=== PATIENT | male | born 1935 | race Caucasian/White ===

== ENCOUNTER → 2016-09-11 | Outpatient (CLI) | payer MEDICARE, BC ==
[~2016-09-11] MED LIST: ALLO300T PO; ASPI81TA2 PO; CARV3.12 PO; LISI20TA PO; PANT40TA3 PO; PIOG1TAB15 PO; SIMV20TA PO; TAMS0.4C97 PO
--- NOTE | 2016-09-11 16:23 | RAD ---
Lumbar spine, 3 views, 09/11/2016: History: Back pain There is a mild vertebral compression deformity at L2. In retrospect this was present on an old CT study from 04/10/2017. The other lumbar vertebral heights are well-maintained. There are mild scattered marginal spurs. There are mild degenerative changes involving the facet joints in the lower lumbar spine. Aortoiliac calcific plaquing is present. IMPRESSION: 1. Old L2 vertebral compression fracture. 2. Mild scattered degenerative changes. 3. No acute abnormality is detected.
== END | disposition home or self-care (01) ==
LOC: DXRADRC 10:06
PROVIDERS: ATTEND Family Medicine
DX: M54.89 Other dorsalgia (principal)
CPT/HCPCS: 72100

== ENCOUNTER 2020-11-13 04:20 | Emergency (ER) | payer MEDICARE, BC ==
[~2020-11-13] VITALS: Ht 180.3 cm; Wt 83.4 kg
[~2020-11-13 04:20] MED LIST changes: +ASPI-630 PO; -ASPI81TA2 PO; -PIOG1TAB15 PO; +PIOG1TAB24 PO
--- NOTE | 2020-11-13 04:25 | PHYS DOC ---
Adult General HPI HPI Patient is an 85-year-old male with an unknown past medical history who presents via EMS after a fall. EMS got a call to come to her home where the patient had fell. Per at home, they went to bed between 9 PM and 10 PM and he was at his baseline. told EMS that around 3 AM she heard a loud noise, woke up and he had fell onto the ground. Per and EMS he was confused and seemed to have trouble breathing. EMS stated that on arrival he had oxygen saturations in the 60s and was placed on nasal cannula. States that it was not until he put a nonrebreather on that he got oxygen saturations up in the 90s. On arrival to the emergency department patient is more awake and alert per EMS with a blood sugar of 160. Patient however awake, is not speaking but is moving all extremities. (GRECIA DOZIER MD) Review of Systems Review of Systems Review of systems otherwise unremarkable except noted in HPI (GRECIA DOZIER MD) Allergies Allergies Allergies Coded Allergies Type Severity Reaction Last Updated Verified Penicillins Allergy Unknown 12/26/14 Yes (GRECIA DOZIER MD) Physical Exam Physical Exam Constitutional: Well developed, well nourished, patient awake but not speaking HENT: Has an abrasion on left parietal scalp with some erythema, bilateral external ears normal, no hemotympanums, oropharynx moist, no oral exudates, nose normal. [] Eyes: 2 mm bilaterally and reactive pupils, conjunctiva normal, no discharge. [] Neck: Normal range of motion, no tenderness, supple, no stridor. [] Cardiovascular:Heart rate regular rhythm, no murmur [] Lungs & Thorax: Decreased breath sounds bilaterally with no obvious wheezing or rhonchi Abdomen: Bowel sounds normal, soft, no tenderness, no masses, no pulsatile masses. [] Skin: Warm, dry, no erythema, no rash. [] Back: No step-offs, bruising or deformities noted Extremities: No tenderness, no cyanosis, no clubbing, ROM intact, no edema. [] Neurologic: GCS of 12 (E4, V3, M5). Patient looking around in all directions, will occasionally respond to comments and obey commands such as stick out your tongue but other appears to be staring off. Does appear to have sensation in all limbs on pinch. Appears to have motor function in all limbs. (GRECIA DOZIER MD) EKG EKG [] (GRECIA DOZIER MD) Radiology/Procedures Radiology/Procedures [] (GRECIA DOZIER MD) Impressions: INDICATION: Reason: AMS, OMNI 350, 75ml / Spl. Instructions: / History: COMPARISON: CT head from earlier same day. TECHNIQUE: Axial CT images obtained through the head and neck arterial vasculature with intravenous contrast. 3D images were processed per protocol. Estimates of carotid stenosis based on criteria that correlates with NASCET. One or more of the following individualized dose reduction techniques were utilized for this examination: 1. Automated exposure control; 2. Adjustment of the mA and/or kV according to patient size; 3. Use of iterative reconstruction technique. FINDINGS: Cystic changes at the lung apices. There is also some groundglass opacities at the lung apices. Neck Angio: Multifocal plaque is seen throughout the vasculature. There is some tortuosity at the origin of the left vertebral artery with a suspected focus of soft plaque within the region. The left vertebral artery is patent. Plaque is seen within the right vertebral artery which is patent with some tapering in size distally. Calcific atherosclerosis of the right internal carotid artery. This includes at the carotid bulb. Right common carotid artery is patent. Left common carotid artery is patent with some soft plaque seen within as well as some scattered hard plaque. Plaque at the carotid bulb. There is a region of stenosis at the left internal carotid artery proximally likely within the 50-70 percent range. Calcific atherosclerosis of the bilateral carotid siphon. Plaque at the bilateral external carotid arteries which are patent proximally. Brain Angio: Proximal anterior cerebral arteries are patent. Proximal posterior cerebral arteries are patent. Proximal middle cerebral arteries are patent. Basilar artery is patent. The junction of the distal aspect of the right middle cerebral artery and right internal carotid artery. Mild focal aneurysmal outpouching from the inferior aspect of the vessel measuring approximately 2 mm. 2 mm aneurysmal outpouching off of the inferior aspect of the left distal internal carotid artery near MCA junction Other Findings: Degenerative changes of the spine with multilevel central canal and neural foraminal stenosis. There are some prominent lymph nodes in partially visualized superior mediastinum. Scattered regions of low density throughout the white matter. Patchy osseous demineralization with scattered lucent lesions within osseous structures. Opacification of right mastoid air cells. IMPRESSION: * Vertebral, internal and common carotid arteries are patent within the neck. * Proximal middle, anterior and posterior cerebral arteries are patent. If there is high concern for stroke MRI could better assess for a more peripheral region of ischemia that would not be well seen on CT. 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 * Multifocal plaque throughout the vascular system. * Prominent lymph nodes in partially visualized superior mediastinum. * Opacification of mastoid air cells which could be from congestion or mastoiditis. * Patchy osseous demineralization throughout the osseous structures. Could be related to osteoporosis but a marrow infiltrative process cannot be excluded on this exam. * Fibrotic and emphysematous changes at lung apices. Report called to the emergency department at 6:00 AM. FOR INTERNAL CODING PURPOSES RESULT CODE: (C) Electronically signed by: Sally Jiang MD (11/13/2020 6:05 AM) [id number] DICTATED AND SIGNED BY: SALLY JIANG MD DATE: 11/13/20534 CC: GRECIA DOZIER MD; PCP,NO ~MTH0 0 (ANUPAMA CUNHA DO) Heart Score C/O Chest Pain: N/A Risk Factors: Risk Factors: DM, Current or recent (<one month) smoker, HTN, HLP, family history of CAD, obesity. Risk Scores: Risk Factors: DM, Current or recent (<one month) smoker, HTN, HLP, family history of CAD, obesity. (GRECIA DOZIER MD) Course & Med Decision Making Course & Med Decision Making Patient is an 85-year-old male with an unknown past medical history who presents to the emergency department with apparent altered mental status and GCS of 12. According to EMS he had oxygen saturations in the 60s upon arrival to their house which came up to the 90s with a nonrebreather. Blood glucose of 160. [] (GRECIA DOZIER MD) Course & Med Decision Making The patient's CTA is negative for proximal occlusion. There are couple of small aneurysms. See official read for more details. The patient's x-ray certainly suggestive of bilateral pneumonia or edema. His BNP is negative so pneumonia seems more likely. The patient has been treated with Levaquin. His NIH score has improved significantly as his only real symptom is mild slurred speech. He does not have his glasses so he missed some words reading. I spoke with the transfer center and Dr. Eduardo has accepted the patient for transfer. He will go by ambulance. (ANUPAMA CUNHA DO) Dragon Disclaimer Dragon Disclaimer This electronic medical record was generated, in whole or in part, using a voice recognition dictation system. (GRECIA DOZIER MD) Departure Departure: Impression: Primary Impression: Bilateral pneumonia Additional Impression: TIA (transient ischemic attack) Disposition: HOME / SELF CARE / HOMELESS Condition: GUARDED Problem Qualifiers GRECIA DOZIER MD November 13, 2020 04:24 ANUPAMA CUNHA DO November 13, 2020 06:36
[2020-11-13] MEDS ORDERED: IOHEXOL 350 MG/ML 100 ML VIAL. IV ONE (04:45)
--- NOTE | 2020-11-13 04:47 | RAD ---
INDICATION: Reason: SOB / Spl. Instructions: / History: COMPARISON: February 2013 FINDINGS: Single view of chest obtained. Cardiomediastinal silhouette prominent in size. Mild interstitial opacities at the bilateral lungs. IMPRESSION: * Mild interstitial and groundglass opacities bilaterally which could be from mild edema or bilatera l infiltrate. * Enlarged cardiomediastinal silhouette. Electronically signed by: Quinn Thomas MD (11/13/2020 4:45 AM) [id number]
--- NOTE | 2020-11-13 04:56 | RAD ---
INDICATION: Reason: AMS / Spl. Instructions: / History: COMPARISON: November 2014. TECHNIQUE: Axial CT images obtained through the head without intravenous contrast. One or more of the following individualized dose reduction techniques were utilized for this examinat ion: 1. Automated exposure control; 2. Adjustment of the mA and/or kV according to patient size; 3 . Use of iterative reconstruction technique. FINDINGS: No intracranial hemorrhage. No midline shift. Basal cisterns patents. Ventricles and sulci are globally prominent. No acute osseous abnormality. Opacification and sclerosis through right mastoid air cells. Osseous demineralization. Scattered foci of low attenuation within the white matter. Calcific atherosclerosis. IMPRESSION: 1. No acute intracranial hemorrhage. 2. Scattered regions of low attenuation within the white matter. Non-specific in nature but frequen tly secondary to small vessel ischemic disease. If there is concern for acute causes clinically MRI c an better assess acuity 3. Prominence of ventricles and sulci which is frequently secondary to age related volume loss. Electronically signed by: Quinn Thomas MD (11/13/2020 4:54 AM) [id number]
[2020-11-13] MEDS ORDERED: CONTRAST GIVEN. MC PRN (05:00)
[2020-11-13 05:05] LABS: BASO % 0 % (0-3); EOS # 0.1 x10^3/uL (0.0-0.7); EOS % 1 % (0-3); HEMATOCRIT 31.6 % (39.0-53.0); LYMPH # 1.7 x10^3/uL (1.0-4.8); LYMPH % 14 % (24-48); MEAN CORPUSCULAR HEMOGLOBIN 27 pg (25-35); MEAN CORPUSCULAR HGB CONC 32 g/dL (31-37); MEAN CORPUSCULAR VOLUME 84 fL (79-100); MONO # 0.6 x10^3/uL (0.0-1.1); MONO % 5 % (0-9); NEUT # 9.3 x10^3uL (1.8-7.7); NEUT % 79 % (31-73); PLATELET COUNT 219 x10^3/uL (140-400); RED BLOOD COUNT 3.75 x10^6/uL (4.30-5.70); RED CELL DISTRIBUTION WIDTH 17.1 % (11.5-14.5); WHITE BLOOD COUNT 11.8 x10^3/uL (4.0-11.0)
[2020-11-13 05:15] LABS: CREATININE 1.6 mg/dL (0.7-1.3); GFR 41.2; POTASSIUM 3.9 mmol/L (3.5-5.1)
[2020-11-13 05:21] LABS: ALBUMIN 3.5 g/dL (3.4-5.0); ALBUMIN/GLOBULIN RATIO 0.9 (1.0-1.7); MAGNESIUM 1.6 mg/dL (1.8-2.4); TOTAL BILIRUBIN 0.6 mg/dL (0.2-1.0); TOTAL PROTEIN 7.6 g/dL (6.4-8.2)
[2020-11-13 06:01] LABS: BILIRUBIN,URINE NEG (NEG); CLARITY,URINE CLEAR; COLOR,URINE YELLOW; GLUCOSE,URINE 100 mg/dL (NEG)
[2020-11-13 06:02] LABS: NITRITE,URINE NEG (NEG); UROBILINOGEN,URINE 0.2 mg/dL (0.2 mg/dL)
[2020-11-13 06:03] LABS: BACTERIA,URINE 0 /HPF (0-FEW); RBC,URINE 0 /HPF (0-2); SQUAMOUS EPITHELIAL CELL,UR FEW /LPF; WBC,URINE 0 /HPF (0-4)
--- NOTE | 2020-11-13 06:08 | RAD ---
INDICATION: Reason: AMS, OMNI 350, 75ml / Spl. Instructions: / History: COMPARISON: CT head from earlier same day. TECHNIQUE: Axial CT images obtained through the head and neck arterial vasculature with intravenous contrast. 3 D images were processed per protocol. Estimates of carotid stenosis based on criteria that correlates with NASCET. One or more of the following individualized dose reduction techniques were utilized for this examinat ion: 1. Automated exposure control; 2. Adjustment of the mA and/or kV according to patient size; 3 . Use of iterative reconstruction technique. FINDINGS: Cystic changes at the lung apices. There is also some groundglass opacities at the lung apices. Neck Angio: Multifocal plaque is seen throughout the vasculature. There is some tortuosity at the origin of the l eft vertebral artery with a suspected focus of soft plaque within the region. The left vertebral alma ry is patent. Plaque is seen within the right vertebral artery which is patent with some tapering in size distally. Calcific atherosclerosis of the right internal carotid artery. This includes at the carotid bulb. Rig ht common carotid artery is patent. Left common carotid artery is patent with some soft plaque seen w ithin as well as some scattered hard plaque. Plaque at the carotid bulb. There is a region of stenosis at the left internal carotid artery proxima lly likely within the 50-70 percent range. Calcific atherosclerosis of the bilateral carotid siphon. Plaque at the bilateral external carotid arteries which are patent proximally. Brain Angio: Proximal anterior cerebral arteries are patent. Proximal posterior cerebral arteries are patent. Proximal middle cerebral arteries are patent. Basilar artery is patent. The junction of the distal aspect of the right middle cerebral artery and right internal carotid alma ry. Mild focal aneurysmal outpouching from the inferior aspect of the vessel measuring approximately 2 mm. 2 mm aneurysmal outpouching off of the inferior aspect of the left distal internal carotid alma ry near MCA junction Other Findings: Degenerative changes of the spine with multilevel central canal and neural foraminal stenosis. There are some prominent lymph nodes in partially visualized superior mediastinum. Scattered regions of low density throughout the white matter. Patchy osseous demineralization with scattered lucent lesions within osseous structures. Opacification of right mastoid air cells. IMPRESSION: * Vertebral, internal and common carotid arteries are patent within the neck. * Proximal middle, anterior and posterior cerebral arteries are patent. If there is high concern fo r stroke MRI could better assess for a more peripheral region of ischemia that would not be well seen on CT. * There is a couple of small aneurysms identified bilaterally near the junction of the internal looney tid artery and middle cerebral artery. * Multifocal plaque throughout the vascular system. * Prominent lymph nodes in partially visualized superior mediastinum. * Opacification of mastoid air cells which could be from congestion or mastoiditis. * Patchy osseous demineralization throughout the osseous structures. Could be related to osteoporosi s but a marrow infiltrative process cannot be excluded on this exam. * Fibrotic and emphysematous changes at lung apices. Report called to the emergency department at 6: 00 AM. FOR INTERNAL CODING PURPOSES RESULT CODE: (C) Electronically signed by: Quinn Thomas MD (11/13/2020 6:05 AM) [id number]
--- NOTE | 2020-11-13 06:27 | EKG ---
[address] [address] Test Date: 2020-11-13 Test Time: 04:41:58 Pat Name: ARIEL SUTTON Department: Room: Gender: M Hide Buyer: BRENDAN : 1935 Requested By: GRECIA DOZIER Order Number: [id number] Reading MD: Measurements Intervals [place] Rate: 78 P: 45 ME: 234 QRS: 29 QRSD: 130 T: 70 QT: 402 QTc: 462 Interpretive Statements SINUS RHYTHM PROLONGED ME INTERVAL NON SPECIFIC INTRAVENTRICULAR BLOCK QRS(T) CONTOUR ABNORMALITY CONSISTENT WITH INFERIOR INFARCT PROBABLY OLD ABNORMAL ECG RI6.02 No previous ECG available for comparison
--- NOTE | 2020-11-13 06:31 | RAD ---
INDICATION: Reason: AMS / Spl. Instructions: / History: . COMPARISON: Chest x-ray from earlier same day and CT abdomen from November 2016 TECHNIQUE: Axial CT images obtained through the chest, abdomen and pelvis without contrast. One or more of the following individualized dose reduction techniques were utilized for this examinat ion: 1. Automated exposure control; 2. Adjustment of the mA and/or kV according to patient size; 3 . Use of iterative reconstruction technique. FINDINGS: Chest: Some limitation secondary to patient motion. Cystic changes within the bilateral lungs as well as suspected fibrotic changes which can be seen wit h chronic lung disease. Moderate in severity. Patchy opacities at lung bases. Severe calcific atherosclerosis including of the coronary arteries. There are enlarged lymph nodes within the mediastinum. For example at the precarinal region on the ri ght measuring 12 mm short axis. Also right peritracheal near the thoracic inlet measuring 12 mm short axis. Abdomen and pelvis: Calcific atherosclerosis with infrarenal abdominal aortic ectasia. Left inguinal hernia containing portion of the colon. Fat-containing right inguinal hernia. No intrahepatic bile duct dilation. Postcholecystectomy changes. No peripancreatic fluid collection. No perisplenic hematoma. Low-density exophytic lesion off of the left kidney which is likely cystic in nature measuring up to 55 mm. On prior measured approximately 35 mm. Lobulated appearance of the kidneys with the renal pare nchyma not well evaluated on noncontrast imaging. Urinary bladder is somewhat distended at time of exam. No left hydronephrosis. Suspected exophytic cystic lesion at the upper pole the right kidney as well as peripelvic cystic les ion again seen. Contour deformity of the lower pole of the right kidney. No right-sided hydronephrosi s. Colonic diverticulosis. Prominence the wall of a small portion of the right side of the colon but thi s is in a region with lack of distention. Could be an area of contraction but not well evaluated. Small fat-containing umbilical hernia. No CT evidence of bowel obstruction. Osseous findings: Degenerative changes the spine with central canal and neural foraminal stenosis. Mild compression fra cture of the superior endplate of L2. Patchy osseous demineralization. Scattered small sclerotic foci in osseous structures. Commonly from bone island. IMPRESSION: * Cystic and suspected fibrotic changes within the lungs which can be seen with chronic lung disease . * Superimposed patchy opacities at lung bases which could be from atelectasis or infiltrate. * Mediastinal lymphadenopathy. Could be reactive in nature but follow-up could be obtained to ensure no increase to exclude neoplastic causes. * Left inguinal hernia containing a portion of the colon without evidence of bowel obstruction. * Increase in size of suspected cystic lesion of the left kidney. The kidneys have a lobulated appea vinita bilaterally with the parenchyma not well evaluated given lack of intravenous contrast. * Mild compression fracture of L2. Similar to prior. * Severe calcific atherosclerosis. * Asymmetric fatty tissue within the left greater than right adnexa with suggestion of a capsule on the left. Could be from causes such as left axillary lipoma measuring greater than 8 cm. Electronically signed by: Quinn Thomas MD (11/13/2020 6:29 AM) [id number]
[2020-11-13] MEDS: IV NORMAL SALINE 1,000ML 1,000 ML IV SCH ×2 (07:40→08:15)
[2020-11-13 13:00] VITALS: BP 131/79
== END 2020-11-13 13:15 | disposition admitted as inpatient to this hospital (09) ==
LOC: ER 04:20
DX: S00.01XA Abrasion of scalp, initial encounter (principal); J18.9 Pneumonia, unspecified organism; G45.9 Transient cerebral ischemic attack, unspecified; Z88.0 Allergy status to penicillin; W18.39XA Other fall on same level, initial encounter; Y93.89 Activity, other specified; Y92.89 Other specified places as the place of occurrence of the external cause; Y99.8 Other external cause status
CPT/HCPCS: 36415; 51702; 70450; 70496; 70498; 71045; 71250; 74176; 80053; 81001; 82803; 83605; 83735; 83880; 84443; 84484; 85025; 93005; 96361; 96365; 99285; J1956; J7030; Q9967

== ENCOUNTER 2021-02-01 09:12 | Emergency (ER) | payer MEDICARE, BC ==
[~2021-02-01] VITALS: Ht 180.3 cm; Wt 78.5 kg
[2021-02-01] MEDS ORDERED: IOHEXOL 350 MG/ML 100 ML VIAL. IV ONE (09:30)
[2021-02-01] MEDS ORDERED: IV NORMAL SALINE 1,000ML 1,000 ML IV ONE (09:45)
[2021-02-01 09:47] LABS: BASO # 0.1 x10^3/uL (0.0-0.2); BASO % 1 % (0-3); EOS # 0.4 x10^3/uL (0.0-0.7); EOS % 6 % (0-3); HEMOGLOBIN 10.4 g/dL (13.0-17.5); LYMPH # 1.7 x10^3/uL (1.0-4.8); LYMPH % 24 % (24-48); MEAN CORPUSCULAR HEMOGLOBIN 27 pg (25-35); MEAN CORPUSCULAR HGB CONC 32 g/dL (31-37); MEAN CORPUSCULAR VOLUME 85 fL (79-100); MONO # 0.8 x10^3/uL (0.0-1.1); MONO % 11 % (0-9); NEUT # 4.2 x10^3uL (1.8-7.7); NEUT % 59 % (31-73); PLATELET COUNT 259 x10^3/uL (140-400); RED BLOOD COUNT 3.78 x10^6/uL (4.30-5.70); RED CELL DISTRIBUTION WIDTH 19.3 % (11.5-14.5); WHITE BLOOD COUNT 7.2 x10^3/uL (4.0-11.0)
[2021-02-01 09:52] LABS: CALCIUM 8.9 mg/dL (8.5-10.1); CREATININE 1.5 mg/dL (0.7-1.3); GFR 44.4; POTASSIUM 4.4 mmol/L (3.5-5.1)
[2021-02-01 10:01] LABS: ALBUMIN 3.3 g/dL (3.4-5.0); ALBUMIN/GLOBULIN RATIO 0.8 (1.0-1.7); TOTAL BILIRUBIN 0.9 mg/dL (0.2-1.0); TOTAL PROTEIN 7.2 g/dL (6.4-8.2)
--- NOTE | 2021-02-01 10:08 | PHYS DOC ---
Past History Past Medical History: Diabetes, High Cholesterol, Hypertension, CA, Other Additional Past Medical Histor: chronic back pain Past Surgical History: Angioplasty, Other Additional Past Surgical Histo: December 27 Laproscopic hernia repair Alcohol Use: None General Adult EDM: Chief Complaint: ALTERED MENTAL STATUS HPI: HPI: 85-year-old male presents via EMS concern for stroke. Initially the patient's last known well was sometime in the night. Further discussion with the this morning reveals that he got up at 7:30 AM ambulated on his own to the kitch en coffee. He came back into the kitchen and told his that he did not feel right and that he felt confused. He was able to speak at that time. While they were getting ready to go to the doctor's office or come to the ER, his speech decreased and he was unable to speak prior to leaving the house. The patient was still able to ambulate but seemed to have more general weakness prior to EMS arrival. On arrival the patient was unable to answer questions but was aware and able to follow commands. The patient and his deny any recent illness or symptoms. He was at his normal baseline status last night when they went to bed. The patient had a laparoscopic hernia repair 6 days ago. No history of DVT or PE. Review of Systems: Review of Systems: Constitutional: Denies fever or chills Eyes: Denies change in visual acuity HENT: Denies nasal congestion or sore throat Respiratory: Denies cough or shortness of breath Cardiovascular: Denies chest pain or edema GI: Denies abdominal pain, nausea, vomiting, bloody stools or diarrhea : Denies dysuria Musculoskeletal: Denies back pain or joint pain Integument: Denies rash Neurologic: Speech difficulty, weakness Endocrine: Denies polyuria or polydipsia Lymphatic: Denies swollen glands Psychiatric: Denies depression or anxiety Current Medications: Current Meds: Current Medications Medications (Trade) Dose Ordered Sig/Chani Start Time Stop Time Status Last Admin Dose Admin Iohexol (Omnipaque 350 Mg/ml) 100 ml 1X ONCE 02/01/21 09:30 02/01/21 09:34 DC 02/01/21 09:40 100 ML Sodium Chloride 1,000 ml @ 1,000 mls/hr 1X ONCE 02/01/21 09:45 02/01/21 10:44 02/01/21 09:54 1,000 MLS/HR Allergies: Allergies: Allergies Coded Allergies Type Severity Reaction Last Updated Verified Penicillins Allergy Unknown 02/01/21 Yes Physical Exam: PE: Constitutional: Well developed, well nourished, no acute distress, non-toxic appearance. [] HENT: Normocephalic, atraumatic, bilateral external ears normal, oropharynx moist, no oral exudates, nose normal. [] Eyes: PERRLA, EOMI, conjunctiva normal, no discharge. [] Neck: Normal range of motion, no tenderness, supple, no stridor. [] Cardiovascular: Heart rate 68, regular rhythm, no murmur [] Lungs & Thorax: Bilateral breath sounds clear to auscultation [] Abdomen: Bowel sounds normal, soft, no tenderness, no masses, no pulsatile masses. [] Skin: Warm, dry, no erythema, no rash. [] Back: No tenderness, no CVA tenderness. [] Extremities: No tenderness, no cyanosis, no clubbing, ROM intact, no edema. [] Neurologic: Alert and oriented X 3, see NIH stroke scale [] Psychologic: Unable to assess Current Patient Data: Labs: Laboratory Tests Test 02/01/21 09:17 02/01/21 09:28 Glucose (Fingerstick) 133 mg/dL (70-99) H White Blood Count 7.2 x10^3/uL (4.0-11.0) Red Blood Count 3.78 x10^6/uL (4.30-5.70) L Hemoglobin 10.4 g/dL (13.0-17.5) L Hematocrit 32.0 % (39.0-53.0) L Mean Corpuscular Volume 85 fL (79-100) Mean Corpuscular Hemoglobin 27 pg (25-35) Mean Corpuscular Hemoglobin Concent 32 g/dL (31-37) Red Cell Distribution Width 19.3 % (11.5-14.5) H Platelet Count 259 x10^3/uL (140-400) Neutrophils (%) (Auto) 59 % (31-73) Lymphocytes (%) (Auto) 24 % (24-48) Monocytes (%) (Auto) 11 % (0-9) H Eosinophils (%) (Auto) 6 % (0-3) H Basophils (%) (Auto) 1 % (0-3) Neutrophils # (Auto) 4.2 x10^3uL (1.8-7.7) Lymphocytes # (Auto) 1.7 x10^3/uL (1.0-4.8) Monocytes # (Auto) 0.8 x10^3/uL (0.0-1.1) Eosinophils # (Auto) 0.4 x10^3/uL (0.0-0.7) Basophils # (Auto) 0.1 x10^3/uL (0.0-0.2) Sodium Level 140 mmol/L (136-145) Potassium Level 4.4 mmol/L (3.5-5.1) Chloride Level 104 mmol/L (98-107) Carbon Dioxide Level 26 mmol/L (21-32) Anion Gap 10 (6-14) Blood Urea Nitrogen 22 mg/dL (8-26) Creatinine 1.5 mg/dL (0.7-1.3) H Estimated GFR (Cockcroft-Gault) 44.4 BUN/Creatinine Ratio 15 (6-20) Glucose Level 126 mg/dL (70-99) H Calcium Level 8.9 mg/dL (8.5-10.1) Total Bilirubin Pending Aspartate Amino Transferase (AST) Pending Alanine Aminotransferase (ALT) Pending Alkaline Phosphatase Pending Troponin I Quantitative < 0.017 ng/mL (0-0.055) OM-Wbt-Q-Type Natriuretic Peptide Pending Total Protein Pending Albumin Pending Albumin/Globulin Ratio Pending Vital Signs: Vital Signs Date Time Temp Pulse Resp B/P (MAP) Pulse Ox O2 Delivery O2 Flow Rate FiO2 02/01/21 09:54 98.0 67 15 169/89 (115) 96 Room Air EKG: EKG: Sinus rhythm, rate 68, normal axis, no ST elevation or depression, right bundle branch block. [] Radiology/Procedures: Radiology/Procedures: [] Impressions: EXAM: Head CT without contrast; CT angiogram of the head and neck with intravenous contrast. HISTORY: Stroke. Slurred speech. Weakness. This is not a code stroke exam. TECHNIQUE: Computed tomographic images of the head were obtained without contrast. Postcontrast imaging of the head and neck was also performed and 3- dimensional images were obtained. *One or more of the following individualized dose reduction techniques were utilized for this examination: 1. Automated exposure control. 2. Adjustment of the mA and/or kV according to patient size. 3. Use of iterative reconstruction technique. COMPARISON: 11/13/2020. FINDINGS: There is no hemorrhage. There is no mass effect or midline shift. There is no hydrocephalus. There is cerebral volume loss. There are extensive scattered areas of hypodensity within the cerebral white matter likely due to chronic small vessel disease. There may be superimposed chronic infarcts involving the anterior right frontal lobe and bilateral centrum semiovale. The visualized portion of the orbits, paranasal sinuses and left mastoid air cells are unremarkable. There is right mastoid fluid. There are small benign osseous excrescences along the inner table of the anterior left frontal bone and lateral right frontal bone. This exerts no mass effect on the adjacent brain parenchyma. The angiographic images demonstrate calcified of a sclerotic plaque involving the aorta and origins of the subclavian arteries, with less than 50 percent stenosis. There is a common origin of the right innominate and left common carotid artery, a normal aortic arch branching variant. There are prominent mediastinal and bilateral hilar lymph nodes. For reference purposes, there is a 2.8 cm right hilar lymph node and 2.0 cm right paratracheal lymph node. There is severe emphysema with biapical pleural parenchymal scarring. There is partially calcified atherosclerotic plaque involving the left carotid bulb and proximal internal and external carotid arteries. This results in less than 50 percent stenosis. There is also partially calcified atherosclerotic plaque at the origins of the right internal and external carotid arteries, with less than 50 percent stenosis. The right proximal internal carotid artery is incidentally tortuous. There is additional partially calcified atherosclerotic plaque involving the right petrous segment and the bilateral cavernous segments of the internal carotid arteries. This results in less than 50 percent stenosis. There is a 2 mm outpouching along the posterior medial aspect of the supraclinoid right internal carotid artery likely due to a tiny aneurysm or infundibulum at the origin of a hypoplastic posterior communicating artery. The anterior communicating artery is patent. There is a hypoplastic left posterior communicating artery. The basilar artery and anterior, middle and posterior cerebral arteries are widely patent. There is calcified atherosclerotic plaque at the origin of the right vertebral artery, with less than 50 percent stenosis. There is also calcified plaque involving the distal bilateral vertebral arteries with less than 50 percent stenosis. There is evidence of lens surgery. There is mild maxillary sinus mucosal t hickening with tiny mucous retention cysts. There is right mastoid and middle ear fluid. There are degenerative changes throughout the cervical spine. This results in moderate right foraminal stenosis at C4-C5, moderate bilateral foraminal stenosis at C5-C6 and moderate left foraminal stenosis at C6-C7. There is no neck lymphadenopathy. IMPRESSION: 1. No acute intercranial finding. Note is made that MRI is more sensitive for acute infarction. 2. Bilateral cerebral white matter changes, likely due to chronic small vessel disease. There may be superimposed chronic infarcts within the anterior right frontal lobe and bilateral centrum semiovale. 3. Cerebral atrophy. 4. Daxs-lm-zhtahzqm atherosclerotic plaque involving the origins of the subclavian arteries, the carotid bifurcations and distal internal carotid arteries, origin of the right vertebral artery and distal bilateral vertebral arteries. This results in less than 50 percent stenosis. 5. 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 6. Right mastoid and middle ear fluid. This may be due to an effusion or sequela of otomastoiditis. 7. Degenerative change throughout the cervical spine, resulting in stenosis as before mentioned levels. 8. Severe pulmonary emphysema. There are prominent central and hilar lymph nodes which may be reactive in etiology. PQRS Compliance Statement - Stenosis calculations for CT, MR and conventional angiography are based upon measurement of the distal ICA diameter in accordance with the NASCET methodology. Stenosis calculations for carotid ultrasound studies are derived from validated velocity criteria which are known to correlate with the NASCET methodology. Electronically signed by: Jamilah Quinn MD (02/01/2021 10:46 AM) [id number] DICTATED AND SIGNED BY: JAMILAH QUINN MD DATE: 02/01/21 1016 CC: ANUPAMA CUNHA DO; RASHMI JEAN ~MTH0 0 Heart Score: C/O Chest Pain: N/A Risk Factors: Risk Factors: DM, Current or recent (<one month) smoker, HTN, HLP, family history of CAD, obesity. Risk Scores: Score 0 - 3: 2.5% MACE over next 6 weeks - Discharge Home Score 4 - 6: 20.3% MACE over next 6 weeks - Admit for Clinical Observation Score 7 - 10: 72.7% MACE over next 6 weeks - Early Invasive Strategies Course & Med Decision Making: Course & Med Decision Making Pertinent Labs and Imaging studies reviewed. (See chart for details) The patient's last known well was initially last night so code stroke was not called. After the patient came back from his head CT, he was able to say some words. He appears to be understanding questions but cannot formulate words. He was able to tell me his full name and give simple answers. His tells me this is much better than he was before he got to the hospital. The patient's labs are essentially unremarkable. His decreased hemoglobin and elevated creatinine are similar to previous. His hemoglobin is better than what was just after his surgery a week ago. Upon reevaluation, the patient is feeling back to baseline. He is able to carry on fluid conversation. He denies any weakness or sensory changes. He is gone from an NIH score of 6-0. I had a discussion with the patient and his that this could be an indicator of a future event or not. They state verbal understanding. If his symptoms return in any way they will come back to the hospital. They would like to go home. I believe this is reasonable. He is stable for discharge at this time. [] Dragon Disclaimer: Dragon Disclaimer: This electronic medical record was generated, in whole or in part, using a voice recognition dictation system. NIH Stroke Scale: NIH Stroke Scale Response (Comments) Value Level of Consciousness: 0 Alert/Responsive 0 LOC Questions: 0 Answers both correctly 0 LOC Commands: 0 Performs both tasks 0 Best Gaze: 0 Normal 0 Visual: 0 No visual loss 0 Facial Palsy: 0 Normal, symmetrical 0 Motor - Left Arm 0 No drift 0 Motor - Right Arm 0 No drift 0 Motor - Left Leg 0 No drift 0 Motor: Right Leg 0 No drift 0 Limb Ataxia: 0 Absent 0 Sensory: 0 No loss 0 Best Language: 0 Normal 0 Dysathria: 0 Normal 0 Extinction and Inattention: 0 Normal 0 Total 0 Departure Departure: Impression: Primary Impression: TIA (transient ischemic attack) Disposition: 01 HOME / SELF CARE / HOMELESS Condition: IMPROVED Referrals: RASHMI JEAN (PCP) Patient Instructions: Transient Ischemic Attack, [id number] ANUPAMA CUNHA DO Feb 01, 2021 10:08
--- NOTE | 2021-02-01 10:22 | RAD ---
AP chest. HISTORY: Slurred speech, weakness, possible stroke AP view of the chest was compared with a study from October. There are mild interstitial changes in the l ungs slightly less prominent than the prior study partly due to to the patient having taken a better inspiration. Heart is upper normal in size. There is no pleural effusion. There are no new infiltrate s. IMPRESSION: 1. Mild interstitial changes in the lungs slightly less prominent than the prior study. 2. No new infiltrates. Electronically signed by: Palmer Ogden MD (02/01/2021 10:20 AM) [id number]
--- NOTE | 2021-02-01 10:48 | RAD ---
EXAM: Head CT without contrast; CT angiogram of the head and neck with intravenous contrast. HISTORY: Stroke. Slurred speech. Weakness. This is not a code stroke exam. TECHNIQUE: Computed tomographic images of the head were obtained without contrast. Postcontrast imagi ng of the head and neck was also performed and 3-dimensional images were obtained. *One or more of the following individualized dose reduction techniques were utilized for this examina tion: 1. Automated exposure control. 2. Adjustment of the mA and/or kV according to patient size. 3. Use of iterative reconstruction technique. COMPARISON: 11/13/2020. FINDINGS: There is no hemorrhage. There is no mass effect or midline shift. There is no hydrocephalus . There is cerebral volume loss. There are extensive scattered areas of hypodensity within the cerebr al white matter likely due to chronic small vessel disease. There may be superimposed chronic infarct s involving the anterior right frontal lobe and bilateral centrum semiovale. The visualized portion o f the orbits, paranasal sinuses and left mastoid air cells are unremarkable. There is right mastoid f luid. There are small benign osseous excrescences along the inner table of the anterior left frontal bone and lateral right frontal bone. This exerts no mass effect on the adjacent brain parenchyma. The angiographic images demonstrate calcified of a sclerotic plaque involving the aorta and origins o f the subclavian arteries, with less than 50 percent stenosis. There is a common origin of the right innominate and left common carotid artery, a normal aortic arch branching variant. There are prominen t mediastinal and bilateral hilar lymph nodes. For reference purposes, there is a 2.8 cm right hilar lymph node and 2.0 cm right paratracheal lymph node. There is severe emphysema with biapical pleural parenchymal scarring. There is partially calcified atherosclerotic plaque involving the left carotid bulb and proximal inte rnal and external carotid arteries. This results in less than 50 percent stenosis. There is also part ially calcified atherosclerotic plaque at the origins of the right internal and external carotid alma hong, with less than 50 percent stenosis. The right proximal internal carotid artery is incidentally tortuous. There is additional partially calcified atherosclerotic plaque involving the right petrous segment and the bilateral cavernous segments of the internal carotid arteries. This results in less t saleem 50 percent stenosis. There is a 2 mm outpouching along the posterior medial aspect of the supracl inoid right internal carotid artery likely due to a tiny aneurysm or infundibulum at the origin of a hypoplastic posterior communicating artery. The anterior communicating artery is patent. There is a h ypoplastic left posterior communicating artery. The basilar artery and anterior, middle and posterior cerebral arteries are widely patent. There is calcified atherosclerotic plaque at the origin of the right vertebral artery, with less than 50 percent stenosis. There is also calcified plaque involving the distal bilateral vertebral arteries with less than 50 percent stenosis. There is evidence of lens surgery. There is mild maxillary sinus mucosal thickening with tiny mucous retention cysts. There is right mastoid and middle ear fluid. There are degenerative changes througho ut the cervical spine. This results in moderate right foraminal stenosis at C4-C5, moderate bilateral foraminal stenosis at C5-C6 and moderate left foraminal stenosis at C6-C7. There is no neck lymphade nopathy. IMPRESSION: 1. No acute intercranial finding. Note is made that MRI is more sensitive for acute infarction. 2. Bilateral cerebral white matter changes, likely due to chronic small vessel disease. There may be superimposed chronic infarcts within the anterior right frontal lobe and bilateral centrum semiovale. 3. Cerebral atrophy. 4. Xgsh-vo-wgqxihnn atherosclerotic plaque involving the origins of the subclavian arteries, the looney tid bifurcations and distal internal carotid arteries, origin of the right vertebral artery and dista l bilateral vertebral arteries. This results in less than 50 percent stenosis. 5. 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 6. Right mastoid and middle ear fluid. This may be due to an effusion or sequela of otomastoiditis. 7. Degenerative change throughout the cervical spine, resulting in stenosis as before mentioned level s. 8. Severe pulmonary emphysema. There are prominent central and hilar lymph nodes which may be reactiv e in etiology. PQRS Compliance Statement - Stenosis calculations for CT, MR and conventional angiography are based u shanna measurement of the distal ICA diameter in accordance with the NASCET methodology. Stenosis calcu lations for carotid ultrasound studies are derived from validated velocity criteria which are known t o correlate with the NASCET methodology. Electronically signed by: Jamilah Quinn MD (02/01/2021 10:46 AM) [id number]
--- NOTE | 2021-02-01 11:23 | EKG ---
[address] [address] Test Date: 2021-02-01 Test Time: 09:18:31 Pat Name: ARIEL SUTTON Department: Room: Gender: M Customer Engineer: : [id number] Requested By: ANUPAMA CUNHA Order Number: [id number] Reading MD: Measurements Intervals [place] Rate: 68 P: 25 ND: 198 QRS: 20 QRSD: 134 T: -9 QT: 414 QTc: 445 Interpretive Statements SINUS RHYTHM RIGHT BUNDLE BRANCH BLOCK QRS(T) CONTOUR ABNORMALITY CONSIDER ANTEROLATERAL MYOCARDIAL DAMAGE ABNORMAL ECG RI6.02 No previous ECG available for comparison
[2021-02-01 12:10] VITALS: BP 152/82
== END 2021-02-01 12:26 | disposition home or self-care (01) ==
LOC: ER 09:12
DX: G45.9 Transient cerebral ischemic attack, unspecified (principal); E11.9 Type 2 diabetes mellitus without complications; E78.5 Hyperlipidemia, unspecified; I10 Essential (primary) hypertension; Z88.0 Allergy status to penicillin
CPT/HCPCS: 36415; 70450; 70496; 70498; 71045; 80053; 82947; 83880; 84484; 85025; 93005; 96360; 99285; J7030; Q9967